=== PATIENT | female | born 1970 | race Two or more races ===

== ENCOUNTER → 2025-05-23 | Outpatient (CLI) | payer MEDICAID, SELFPAY ==
--- NOTE | 2025-05-23 08:41 | XR_ITS ---
Examination: Lumbar spine, 5 views Technique: Lumbar spine AP, lateral, coned lateral lower lumbar spine, bilateral obliques 5 views Exam date and time: May 23, 2025 0850 hours INDICATIONS: Low back pain radiating to the right leg beginning one year ago. FINDINGS: Moderate osteopenia. Lumbar dextroscoliosis 10 degrees. Advanced right moderate left hip osteoarthritis Diffuse moderate facet arthropathy Grade 1 anterolisthesis L3 on L4 Diffuse lumbar degenerative disc disease, moderate to advanced L4-L5, L5-S1 IMPRESSION: Diffuse lumbar degenerative disc disease, moderate to advanced L4-L5, L5-S1
== END | disposition home or self-care (01) ==
PROVIDERS: PCP Family Medicine; Referring Provider Physician Assistant; Visit Provider Physician Assistant
DX: M51.360 Other intervertebral disc degeneration, lumbar region with discogenic back pain only (principal); M51.370 Other intervertebral disc degeneration, lumbosacral region with discogenic back pain only
CPT/HCPCS: 72110

== ENCOUNTER 2025-07-10 13:38 | Outpatient (RCR) | payer MEDICAID, SELFPAY ==
--- NOTE | 2025-07-10 14:16 | PTNOTE_ITS ---
PT OP Initial Eval Patient Information Outpatient Physical Therapy Treatment Date: 07/10/25 Visit Reasons: low back pain bilateral sciatica Medical Diagnosis: M54.42 Treatment Dx #1: LBP with radiculopathy Start of Care: 07/10/25 Date of Onset: 8 months ago Smoking Status Smoking Status: Never smoker Initial Assessment Subjective: Pt is 55 yr old new zealander speaking female who reports R lateral LE pain that radiates down to the foot. This interrupts sleep, moving the LE and bending to lift things and HH chores PMH: hypothyroidism, high cholesterol Imaging: Diffuse lumbar degenerative disc disease, moderate to advanced L4-L5, L5-S1?? Pt goal: less pain in R LE Objective: Trunk ArOM: ? B SB 50% of normal ? Extension: 30% with pain around L4-5, L5-S1 ? Flexion: 10 from floor with LBP standing back up ? B rotation: 60% of full ? TTP: min to none of paraspinals L5-S1 ? Neuro: B SLR: negative Assessment: Pt presents with trunk flexion sensitivity and overlying myofascial pain ? and TTP around L5-S1 consistent with DDD, vertebral osteophytes and ? lower lumbar disc bulge(s) with R LE radiculopathy. Pt requires skilled therapy in order to decrease ? pain and improve sitting/standing tolerance and has poor/fair rehab potential. Eval ?followed by HEP printout. Short Term and [employer] Goals 1. Ind with HEP ? 2. Improved sitting/standing tolerance to 30 minutes with <=4/10 LBP ? 3. Decreased lower paraspinal TTP from mod to min 4. Improved HH chore tolerance to at least 30 minutes with <=3/10 LBP and no ?increase in LE ssx ? Treatment Plan ? 1. Manual therapy ? 2. Therex ? 3. Modalities as indicated, moist heat, ice, estim, mechanical traction Frequency and Duration: 1-2x a week for 3-4 trial visits. If progressing up to 12 visits Certification Dates: 07/10/25 to 10/09/25 Procedure Charges OP PT Eval Mod Complex 30 minutes: Yes
== END 2025-07-20 23:59 | disposition home or self-care (01) ==
LOC: CPTX 13:38
PROVIDERS: PCP Physician Assistant; Referring Provider Physician Assistant; Visit Provider Physician Assistant
DX: M54.16 Radiculopathy, lumbar region (principal); M54.42 Lumbago with sciatica, left side
CPT/HCPCS: 97162

== ENCOUNTER 2025-08-19 11:30 | Outpatient (RCR) | payer MEDICAID, SELFPAY ==
--- NOTE | 2025-07-21 10:23 | PT.ODAYNRPT ---
PT Outpatient Daily Note OP Daily Note Outpatient Physical Therapy Treatment Date: 07/21/25 Visit Reasons: low back pain Subjective: Same as time of evaluation Objective: See F/S for therex Assessment: Low pain in LB with therex Plan: Continue per POC Length of Time (minutes) of Treatment: 30 Minutes Procedure Charges Therapeutic Exercise 30 minutes: Yes
--- NOTE | 2025-07-28 10:00 | PT.ODAYNRPT ---
PT Outpatient Daily Note OP Daily Note Outpatient Physical Therapy Treatment Date: 07/28/25 Visit Reasons: low back pain Subjective: The LB isn't hurting today and the LE pain is light Objective: See F/S for therex Mechanical traction L/S x7' Assessment: Low pain in LB with extension biased therex Plan: Continue per POC Length of Time (minutes) of Treatment: 30 Minutes Procedure Charges Therapeutic Exercise 30 minutes: Yes
--- NOTE | 2025-08-04 11:43 | PT.ODAYNRPT ---
PT Outpatient Daily Note OP Daily Note Outpatient Physical Therapy Treatment Date: 08/04/25 Visit Reasons: low back pain Subjective: The LB isn't hurting today and the LE pain is light. She wants to do traction again today. Objective: See F/S for therex Mechanical traction L/S x7' Assessment: Low pain in LB with extension biased therex. Good response to traction. Plan: Continue per POC Length of Time (minutes) of Treatment: 30 Minutes Procedure Charges Therapeutic Exercise 30 minutes: Yes
--- NOTE | 2025-08-11 16:31 | PT.ODAYNRPT ---
PT Outpatient Daily Note OP Daily Note Outpatient Physical Therapy Treatment Date: 08/11/25 Visit Reasons: low back pain Subjective: The LB isn't hurting today and the LE pain is light. Objective: See F/S for therex Assessment: Low pain in LB with extension biased therex. Plan: Continue per POC Length of Time (minutes) of Treatment: 30 Minutes Procedure Charges Therapeutic Exercise 30 minutes: Yes
--- NOTE | 2025-08-19 12:53 | PT.ODAYNRPT ---
PT Outpatient Daily Note OP Daily Note Outpatient Physical Therapy Treatment Date: 08/19/25 Visit Reasons: low back pain Subjective: Pt reports slight decrease in LBP. Objective: Please see flow sheet for ther ex list. Assessment: Pt tolerated added interventions with good tolerance. Plan: Continue with poC. Length of Time (minutes) of Treatment: 30 Minutes Procedure Charges Therapeutic Exercise 30 minutes: Yes
== END 2025-08-20 23:59 | disposition home or self-care (01) ==
LOC: CPTX 11:30
PROVIDERS: PCP Physician Assistant; Referring Provider Physician Assistant; Visit Provider Physician Assistant
DX: M54.16 Radiculopathy, lumbar region (principal); M54.42 Lumbago with sciatica, left side
CPT/HCPCS: 97110